=== PATIENT | male | born 1985 | race Two or more races ===

== ENCOUNTER 2018-01-17 19:51 | Emergency (ER) | payer OTHER ==
[~2018-01-17] VITALS: Ht 172.7 cm; Wt 90.5 kg
[2018-01-17 20:02] VITALS: BP 113/70
== END 2018-01-17 22:01 | disposition home or self-care (01) ==
LOC: ED 21:56
DX: K04.7 Periapical abscess without sinus (principal)
CPT/HCPCS: 99283